=== PATIENT | male | born 1945 | race African-American/Black ===

== ENCOUNTER 2024-01-02 03:42 | Inpatient (IN) | payer BC, OTHER ==
[~2024-01-02] VITALS: Ht 180.3 cm; Wt 94.8 kg
[~2024-01-02 03:42] MED LIST: ALLO300T2 PO; AMLO1CAP2 PO; ASPI-1406 PO; ATOR10TA69 PO; CARV25TA47 PO; FURO40TA5 PO; GLIM4TAB36 PO; HYDR-3782 PO; INSULIN DEGLUDEC SQ; LEVO-65 MT; METO2.5T2 PO; MIRA25TA PO; PANT40TA51 PO; SPIR25TA PO
[2024-01-02] MEDS: DEXTROSE 50% WATER 50ML SYRINGE IV ONE ×2 (04:32)
[2024-01-02 04:58] LABS: BASOPHILS % 0.3 % (0.0-2.0); DIFFERENTIAL COMMENT 0; HEMATOCRIT. 35.8 % (42.0-52.0); HEMOGLOBIN. 11.7 g/dL (14.0-18.0); LYMPHOCYTES % 18.5 % (20.0-50.0); MEAN CORPUSCULAR HEMOGLOBIN 25.1 pg (28.0-32.0); MEAN CORPUSCULAR HGB CONC 32.8 g/dL (31.0-37.0); MEAN CORPUSCULAR VOLUME 76.7 fL (80.0-94.0); MEAN PLATELET VOLUME 9.8 fl (7.4-10.4); MONOCYTES % 7.6 % (2.0-8.0); NEUTROPHILS % 73.6 % (40.0-76.0); PLATELET 178 x1000/uL (130-400); RED BLOOD CELL COUNT 4.67 mill/uL (4.7-6.1); WHITE BLOOD COUNT 8.4 x1000/uL (4.5-11.0)
[2024-01-02 05:14] LABS: ALANINE AMINOTRANSFERASE 29 IU/L (10-49); ASPARTATE AMINOTRANSFERASE 62 IU/L (<34); CARBON DIOXIDE 20 mEq/L (21-32); CHLORIDE 109 mEq/L (98-107); POTASSIUM 5.8 mEq/L (3.5-5.1); PROTEIN TOTAL 7.6 g/dL (6.0-8.3); SODIUM 139 mEq/L (136-145); UREA NITROGEN BLOOD 39 mg/dL (9-23)
[2024-01-02 05:21] LABS: CREATININE 1.5 mg/dL (0.6-1.3)
[2024-01-02 05:23] LABS: GLUCOSE 39 mg/dL (70-105); TROPONIN I HIGH SENSITIVITY 383 ng/L (3.0-53)
[2024-01-02 05:52] LABS: INR 1.2; PROTHROMBIN TIME 13.6 sec (9.6-11.0)
[2024-01-02] MEDS: PIPERACILLIN/TAZO 3.375G/50ML 50 ML IV ONE (06:17)
[2024-01-02] MEDS: SODIUM CHLORIDE 0.9% 500 ML IV ONE (06:17)
[2024-01-02] MEDS: SODIUM POLYSTYRENE SULFONATE 15 G/60 ML BOT PO ONE (06:17)
[2024-01-02] MEDS ORDERED: ENOXAPARIN 100MG/ML SYR SUBCUT ONE (06:30)
[2024-01-02] MEDS: CALCIUM GLUCONATE 1GM PREMIX 50 ML IV ONE ×2 (06:42)
[2024-01-02] MEDS: VANCOMYCIN 1G PREMIX 200 ML IV ONE (06:52)
[2024-01-02 07:20] LABS: TROPONIN I HIGH SENSITIVITY 416 ng/L (3.0-53)
[2024-01-02] MEDS: ASPIRIN 325MG EC TABLET PO ONE (07:51)
[2024-01-02] MEDS ORDERED: MAGNESIUM/ALUMINUM HYDROXIDE/SIMETHICONE 30ML UDC PO PRN (08:45)
[2024-01-02] MEDS ORDERED: GUAIFENESIN 200MG/10ML SUGAR FREE UDC PO PRN (08:45)
[2024-01-02] MEDS ORDERED: ONDANSETRON HCL 4MG/2ML INJ IV PRN (08:45)
[2024-01-02] MEDS ORDERED: IPRATROPIUM/ALBUTEROL 0.5-3(2.5)MG/3ML NEB HHN PRN (08:45)
[2024-01-02] MEDS ORDERED: ACETAMINOPHEN 325MG TABLET PO PRN (08:45)
[2024-01-02] MEDS ORDERED: DOCUSATE SODIUM 100MG CAPSULE PO PRN (08:45)
[2024-01-02] MEDS ORDERED: ENOXAPARIN 40MG/0.4ML SYR SUBCUT SCH (09:00)
[2024-01-02] MEDS: VANCOMYCIN 1G PREMIX 200 ML IV SCH ×2 (09:00→17:16)
[2024-01-02] MEDS: FUROSEMIDE 40MG/4ML VIAL IV SCH (11:12)
[2024-01-02] MEDS: PIPERACILLIN/TAZO 3.375G/50ML 50 ML IV SCH (11:13)
[2024-01-02] MEDS: FAMOTIDINE 20MG TABLET PO SCH (11:15)
[2024-01-02] MEDS: DEXT 5%/LACTATED RINGERS 1,000 ML IV SCH (11:15)
[2024-01-02 11:47] LABS: CLARITY URINE CLEAR (CLEAR); COLOR URINE YELLOW (YELLOW); GLUCOSE URINE NEGATIVE (NEGATIVE); KETONES URINE TRACE (NEGATIVE); LEUKOCYTE ESTERASE URINE NEGATIVE (NEGATIVE); NITRITE URINE NEGATIVE (NEGATIVE); OCCULT BLOOD URINE 1+ (NEGATIVE); PROTEIN URINE 2+ (NEGATIVE); SPECIFIC GRAVITY URINE 1.011 (1.005-1.030); UROBILINOGEN URINE 0.2 E.U./dL (0.2-1.0)
[2024-01-02 12:05] LABS: *AMPHETAMINES SCREEN URINE NEGATIVE (NEGATIVE); *BARBITURATES SCREEN URINE NEGATIVE (NEGATIVE); *BENZODIAZEPINES SCREEN URINE NEGATIVE (NEGATIVE); *COCAINE SCREEN URINE NEGATIVE (NEGATIVE); CANNABINOID URINE SCREEN NEGATIVE (NEGATIVE); ECSTASY MDMA SCREEN URINE NEGATIVE (NEGATIVE); METHADONE URINE SCREEN Neg (NEGATIVE); OPIATES URINE SCREEN NEGATIVE (NEGATIVE); PHENCYCLIDINE URINE SCREEN NEGATIVE (NEGATIVE)
[2024-01-02 12:18] LABS: RBC URINE 0-2 /hpf (0-2); SQUAMOUS EPITHELIAL CELL URINE FEW /lpf (RARE/1+); WBC URINE 0-2 /hpf (0-2)
[2024-01-02 12:19] LABS: BACTERIA URINE NONE SEEN
[2024-01-02 12:42] LABS: CREATINE KINASE 2231 IU/L (46-171); CREATINE KINASE MB FRACTION 29.6 ng/mL (0.5-3.6); IRON 54 ug/dL (65-175); PHOSPHORUS 4.2 mg/dL (2.5-4.9); TOTAL IRON BINDING CAPACITY 230 ug/dl (250-425)
[2024-01-02 12:45] LABS: TROPONIN I HIGH SENSITIVITY 694 ng/L (3.0-53)
[2024-01-02] MEDS: AMLODIPINE 5MG TABLET PO SCH (14:15)
[2024-01-02] MEDS ORDERED: DEXTROSE 50% WATER 50ML SYRINGE IV PRN (14:30)
[2024-01-02 15:15] LABS: FERRITIN 308 ng/mL (22-322); FOLIC ACID (FOLATE) SERUM 19.08 ng/mL (>5.38); VITAMIN B12 SERUM 416 pg/mL (211-911)
[2024-01-02] MEDS: FUROSEMIDE 40MG/4ML VIAL IVP SCH (15:30)
[2024-01-02 16:00] VITALS: BP_SYST 123; BP_DIAS 93; BP_DIAS 97; PULSE 114; RESP 20; TEMP 98.7
[2024-01-02] MEDS: BLOOD SUGAR DIAGNOSTIC STRIP TEST SCH (16:30)
[2024-01-02 20:27] VITALS: BP 157/81; PULSE 111; RESP 20; TEMP 97.8
[2024-01-02] MEDS ORDERED: FAMOTIDINE 20MG TABLET PO SCH (21:00)
[2024-01-02 22:17] LABS: AMMONIA < 17 uMol/L (<32)
[2024-01-02 22:18] LABS: CREATINE KINASE 1196 IU/L (46-171); CREATINE KINASE MB FRACTION 13.5 ng/mL (0.5-3.6)
[2024-01-02] MEDS: ATORVASTATIN CALCIUM 40MG TABLET PO SCH (22:25)
[2024-01-02 22:31] LABS: TROPONIN I HIGH SENSITIVITY 566 ng/L (3.0-53)
[2024-01-03] VITALS (8 sets, daily range): BP systolic 142–155; BP diastolic 65–75; PULSE 99–110; RESP 17–20; TEMP 97.4–98.1
[2024-01-03 06:42] LABS: HEMATOCRIT. 32.3 % (42.0-52.0); HEMOGLOBIN. 10.7 g/dL (14.0-18.0); MEAN CORPUSCULAR HEMOGLOBIN 25.4 pg (28.0-32.0); MEAN CORPUSCULAR HGB CONC 33.1 g/dL (31.0-37.0); MEAN CORPUSCULAR VOLUME 76.7 fL (80.0-94.0); MEAN PLATELET VOLUME 10.1 fl (7.4-10.4); PLATELET 101 x1000/uL (130-400); RED BLOOD CELL COUNT 4.21 mill/uL (4.7-6.1); RED CELL DISTRIBUTION WIDTH 16.9 % (11.6-14.6)
[2024-01-03 06:58] LABS: ALANINE AMINOTRANSFERASE 30 IU/L (10-49); ASPARTATE AMINOTRANSFERASE 57 IU/L (<34); CALCIUM 8.8 mg/dL (8.7-10.4); CARBON DIOXIDE 20 mEq/L (21-32); CHLORIDE 115 mEq/L (98-107); CHOLESTEROL 85 mg/dL (<200); CREATININE 1.4 mg/dL (0.6-1.3); GLUCOSE 119 mg/dL (70-105); HDL CHOLESTEROL 30 mg/dL (>55); LDL CHOLESTEROL 42 mg/dL (5-100); SODIUM 142 mEq/L (136-145); T4 FREE 3.07 ng/dL (0.89-1.76); THYROID STIMULATING HORMONE < 0.10 uIU/mL (0.55-4.78); TRIGLYCERIDE 63 mg/dL (0-150); UREA NITROGEN BLOOD 34 mg/dL (9-23)
[2024-01-03 06:59] LABS: PROTEIN TOTAL 5.5 g/dL (6.0-8.3)
[2024-01-03] MEDS: PIPERACILLIN/TAZO 3.375G/50ML 50 ML IV SCH (07:28)
[2024-01-03 08:22] LABS: DIFFERENTIAL COMMENT 1
[2024-01-03] MEDS ORDERED: FUROSEMIDE 40MG/4ML VIAL IVP SCH (09:00)
[2024-01-03] MEDS: NA PHOS,M-B/NA PHOS,DI-BA ENEMA 118ML PR NR (10:45)
[2024-01-03] MEDS: LACTULOSE 20G/30ML UDC PO NR (11:25)
[2024-01-03 11:45] LABS: ANISOCYTOSIS 1+; PLATELET ESTIMATE SLIGHTLY DECREASED
[2024-01-03] MEDS: METHIMAZOLE 5MG TABLET PO SCH (22:04)
[2024-01-04] VITALS: BP 129/69; PULSE 99; RESP 19; TEMP 97.8
[2024-01-04 08:00] VITALS: BP 162/91; PULSE 95; RESP 20; TEMP 98
[2024-01-04] MEDS: AMLODIPINE 10MG TABLET PO SCH (08:45)
[2024-01-04] MEDS: CLONIDINE 0.1MG TABLET PO PRN (08:45)
[2024-01-04] MEDS: LINAGLIPTIN 5MG TABLET PO SCH (08:45)
[2024-01-04 09:41] LABS: HEMATOCRIT 32.8 % (42.0-52.0); HEMOGLOBIN 10.9 g/dL (14.0-18.0); MEAN CORPUSCULAR HEMOGLOBIN 25.2 pg (28.0-32.0); MEAN CORPUSCULAR HGB CONC 33.1 g/dL (31.0-37.0); MEAN CORPUSCULAR VOLUME 76.2 fL (80.0-94.0); PLATELET 142 x1000/uL (130-400); RED BLOOD CELL COUNT 4.31 mill/uL (4.7-6.1); RED CELL DISTRIBUTION WIDTH 16.5 % (11.6-14.6); WHITE BLOOD COUNT 8.6 x1000/uL (4.5-11.0)
[2024-01-04 11:15] LABS: CARBON DIOXIDE 23 mEq/L (21-32); CHLORIDE 114 mEq/L (98-107); CREATININE 1.3 mg/dL (0.6-1.3); GLUCOSE 192 mg/dL (70-105); PHOSPHORUS 3.3 mg/dL (2.5-4.9); POTASSIUM 3.3 mEq/L (3.5-5.1); SODIUM 145 mEq/L (136-145); UREA NITROGEN BLOOD 28 mg/dL (9-23)
[2024-01-04] MEDS: BACITRACIN 14GM TUBE TOP SCH (13:30)
[2024-01-04] MEDS: METHIMAZOLE 5MG TABLET PO SCH (13:40)
[2024-01-04] MEDS: PIPERACILLIN/TAZO 3.375G/50ML 50 ML IV SCH (13:41)
[2024-01-04 16:00] VITALS: BP 129/53; PULSE 83; RESP 20; TEMP 97.4
[2024-01-04 20:00] VITALS: BP 156/74; PULSE 87; RESP 18; TEMP 97.6
[2024-01-04] MEDS: CARVEDILOL 12.5MG TABLET PO SCH (20:29)
[2024-01-05] VITALS: BP 143/62; PULSE 82; RESP 19; TEMP 98.6
[2024-01-05 04:00] VITALS: BP 150/65; PULSE 86; RESP 19; TEMP 98.7
[2024-01-05 07:29] LABS: CALCIUM 8.7 mg/dL (8.7-10.4); CARBON DIOXIDE 23 mEq/L (21-32); CHLORIDE 113 mEq/L (98-107); CREATININE 1.1 mg/dL (0.6-1.3); GLUCOSE 178 mg/dL (70-105); PHOSPHORUS 2.5 mg/dL (2.5-4.9); POTASSIUM 3.2 mEq/L (3.5-5.1); SODIUM 144 mEq/L (136-145); UREA NITROGEN BLOOD 21 mg/dL (9-23)
[2024-01-05 08:00] VITALS: BP 176/85; PULSE 89; RESP 18; TEMP 97.4
[2024-01-05] MEDS: POTASSIUM CHLORIDE 20MEQ/PACKET PO NR (11:00)
[2024-01-05 12:00] VITALS: BP 156/79; PULSE 88; RESP 20; TEMP 98.6
[2024-01-05 13:07] LABS: HEMATOCRIT 28.3 % (42.0-52.0); HEMOGLOBIN 9.4 g/dL (14.0-18.0); MEAN CORPUSCULAR HEMOGLOBIN 25.5 pg (28.0-32.0); MEAN CORPUSCULAR VOLUME 77.3 fL (80.0-94.0); PLATELET 128 x1000/uL (130-400); RED BLOOD CELL COUNT 3.66 mill/uL (4.7-6.1); RED CELL DISTRIBUTION WIDTH 16.6 % (11.6-14.6); WHITE BLOOD COUNT 6.6 x1000/uL (4.5-11.0)
[2024-01-05 16:00] VITALS: BP 158/79; PULSE 80; RESP 20; TEMP 97.4
[2024-01-05] MEDS: POTASSIUM CHLORIDE 20MEQ TABLET SR PO NR (17:56)
[2024-01-05] MEDS: MAGNESIUM 2 G PREMIX 50 ML IV NR (18:48)
[2024-01-05 20:32] VITALS: BP 171/77; PULSE 97; RESP 16; TEMP 97.8
[2024-01-05] MEDS: CARVEDILOL 12.5MG TABLET PO SCH (21:05)
[2024-01-06 00:45] VITALS: BP 138/72; PULSE 84; RESP 19; TEMP 97.8
[2024-01-06 04:00] VITALS: BP 166/72; PULSE 89; RESP 16; TEMP 97.5
[2024-01-06 07:54] VITALS: BP 134/76; PULSE 87; RESP 20; TEMP 98.3
[2024-01-06 12:00] VITALS: BP 158/73; PULSE 86; RESP 20; TEMP 97.7
[2024-01-06 16:00] VITALS: BP 124/63; PULSE 57; RESP 20; TEMP 98
[2024-01-06 17:25] VITALS: BP 152/68; PULSE 87; RESP 20; TEMP 98
[2024-01-07 08:00] VITALS: BP 148/71; PULSE 90; RESP 16; TEMP 98
[2024-01-07] MEDS: ASPIRIN 81MG TABLET PO SCH (10:42)
[2024-01-07] MEDS: ASCORBIC ACID 500 MG TABLET PO SCH (10:45)
[2024-01-07] MEDS: ZINC SULFATE 220 MG ( 50 ) CAPSULE PO SCH (10:45)
[2024-01-07] MEDS: MULTIVITAMINS,THER W-MINERALS TABLET PO SCH (10:45)
[2024-01-07 12:00] VITALS: BP 135/56; PULSE 73; RESP 18; TEMP 97.9
[2024-01-07 16:00] VITALS: BP 142/69; PULSE 81; RESP 17; TEMP 97.6
[2024-01-07 18:42] LABS: HEMATOCRIT 32.2 % (42.0-52.0); HEMOGLOBIN 10.4 g/dL (14.0-18.0); MEAN CORPUSCULAR HEMOGLOBIN 24.9 pg (28.0-32.0); MEAN CORPUSCULAR HGB CONC 32.4 g/dL (31.0-37.0); MEAN CORPUSCULAR VOLUME 76.8 fL (80.0-94.0); PLATELET 154 x1000/uL (130-400); RED BLOOD CELL COUNT 4.19 mill/uL (4.7-6.1); RED CELL DISTRIBUTION WIDTH 16.6 % (11.6-14.6); WHITE BLOOD COUNT 5.9 x1000/uL (4.5-11.0)
[2024-01-07 18:53] LABS: CALCIUM 8.6 mg/dL (8.7-10.4); CARBON DIOXIDE 25 mEq/L (21-32); CHLORIDE 111 mEq/L (98-107); GLUCOSE 218 mg/dL (70-105); PHOSPHORUS 2.8 mg/dL (2.5-4.9); POTASSIUM 3.4 mEq/L (3.5-5.1); SODIUM 143 mEq/L (136-145); UREA NITROGEN BLOOD 15 mg/dL (9-23)
[2024-01-07 20:00] VITALS: BP 155/72; PULSE 89; RESP 18; TEMP 98.1
[2024-01-08] VITALS: BP 102/60; PULSE 86; RESP 18; TEMP 97.9
[2024-01-08 04:00] VITALS: BP 150/64; PULSE 86; RESP 18; TEMP 97.7
[2024-01-08 07:54] LABS: HEMATOCRIT 30.8 % (42.0-52.0); HEMOGLOBIN 10.2 g/dL (14.0-18.0); MEAN CORPUSCULAR HEMOGLOBIN 25.6 pg (28.0-32.0); MEAN CORPUSCULAR HGB CONC 33.2 g/dL (31.0-37.0); MEAN CORPUSCULAR VOLUME 76.9 fL (80.0-94.0); PLATELET 149 x1000/uL (130-400); RED CELL DISTRIBUTION WIDTH 16.2 % (11.6-14.6); WHITE BLOOD COUNT 6.3 x1000/uL (4.5-11.0)
[2024-01-08 08:00] VITALS: BP 157/77; PULSE 85; RESP 20; TEMP 98.2
[2024-01-08] MEDS: MAGNESIUM 1 G PREMIX 100 ML IV NR (09:00)
[2024-01-08 09:27] LABS: CALCIUM 8.8 mg/dL (8.7-10.4); CARBON DIOXIDE 25 mEq/L (21-32); CHLORIDE 111 mEq/L (98-107); CREATININE 0.9 mg/dL (0.6-1.3); GLUCOSE 157 mg/dL (70-105); POTASSIUM 3.3 mEq/L (3.5-5.1); SODIUM 144 mEq/L (136-145); UREA NITROGEN BLOOD 17 mg/dL (9-23)
[2024-01-08 12:00] VITALS: BP 170/76; PULSE 88; RESP 20; TEMP 98.1
[2024-01-08] MEDS: CYANOCOBALAMIN 1000MCG/ML VIAL IM SCH (14:30)
[2024-01-08 16:00] VITALS: BP 150/68; PULSE 72; RESP 20; TEMP 97.9
[2024-01-08] MEDS: LORAZEPAM 2MG/ML INJ IM NR (16:45)
[2024-01-08 20:00] VITALS: BP 167/76; PULSE 72; RESP 18; TEMP 97.8
[2024-01-09] VITALS: BP 163/84; PULSE 78; RESP 18; TEMP 98.2
[2024-01-09 04:00] VITALS: BP 171/83; PULSE 84; RESP 18; TEMP 98.1
[2024-01-09 06:11] LABS: CALCIUM 8.9 mg/dL (8.7-10.4); CARBON DIOXIDE 26 mEq/L (21-32); CHLORIDE 111 mEq/L (98-107); CREATININE 0.8 mg/dL (0.6-1.3); GLUCOSE 120 mg/dL (70-105); PHOSPHORUS 2.9 mg/dL (2.5-4.9); POTASSIUM 3.3 mEq/L (3.5-5.1); SODIUM 144 mEq/L (136-145); UREA NITROGEN BLOOD 16 mg/dL (9-23)
[2024-01-09 06:21] LABS: HEMATOCRIT 30.2 % (42.0-52.0); HEMOGLOBIN 10.1 g/dL (14.0-18.0); MEAN CORPUSCULAR HEMOGLOBIN 25.4 pg (28.0-32.0); MEAN CORPUSCULAR HGB CONC 33.4 g/dL (31.0-37.0); PLATELET 147 x1000/uL (130-400); RED BLOOD CELL COUNT 3.98 mill/uL (4.7-6.1); RED CELL DISTRIBUTION WIDTH 16.3 % (11.6-14.6); WHITE BLOOD COUNT 6.3 x1000/uL (4.5-11.0)
[2024-01-09 08:00] VITALS: BP 180/87; PULSE 89; RESP 20; TEMP 97.7
[2024-01-09] MEDS: MAGNESIUM 2 G PREMIX 50 ML IV NR (09:00)
[2024-01-09] MEDS: POTASSIUM CHLORIDE 20MEQ/PACKET PO NR (09:06)
[2024-01-09] MEDS: MAGNESIUM GLUCONATE 500MG TABLET PO SCH (09:07)
[2024-01-09] MEDS: CLONIDINE HCL 0.1MG/24HR PATCH TD SCH (09:33)
[2024-01-09 12:00] VITALS: BP 151/91; PULSE 87; RESP 20; TEMP 97.7
[2024-01-09] MEDS: FUROSEMIDE 40MG TABLET PO SCH (15:33)
[2024-01-09] MEDS: MAGNESIUM GLUCONATE 500MG TABLET PO NR (15:33)
[2024-01-09 16:00] VITALS: BP 121/79; PULSE 80; RESP 20; TEMP 97.9
[2024-01-09 20:00] VITALS: BP 168/81; PULSE 82; RESP 20; TEMP 97.7
[2024-01-09] MEDS: HYDRALAZINE HCL 25MG TABLET PO SCH (21:04)
[2024-01-10 04:00] VITALS: BP 178/79; PULSE 93; RESP 20; TEMP 98
[2024-01-10 08:27] LABS: HEMATOCRIT 31.2 % (42.0-52.0); HEMOGLOBIN 10.3 g/dL (14.0-18.0); MEAN CORPUSCULAR HEMOGLOBIN 25.2 pg (28.0-32.0); MEAN CORPUSCULAR VOLUME 76.3 fL (80.0-94.0); PLATELET 135 x1000/uL (130-400); RED BLOOD CELL COUNT 4.09 mill/uL (4.7-6.1); RED CELL DISTRIBUTION WIDTH 16.7 % (11.6-14.6)
[2024-01-10 08:42] LABS: CALCIUM 8.8 mg/dL (8.7-10.4); CARBON DIOXIDE 28 mEq/L (21-32); CHLORIDE 113 mEq/L (98-107); CREATININE 0.9 mg/dL (0.6-1.3); GLUCOSE 149 mg/dL (70-105); PHOSPHORUS 2.6 mg/dL (2.5-4.9); POTASSIUM 3.6 mEq/L (3.5-5.1); SODIUM 145 mEq/L (136-145); UREA NITROGEN BLOOD 18 mg/dL (9-23)
[2024-01-10] MEDS: LOSARTAN 25 MG TABLET PO SCH (09:21)
[2024-01-10 12:00] VITALS: BP 157/76; PULSE 97; RESP 20; TEMP 97.7
[2024-01-10 16:00] VITALS: BP 148/87; PULSE 85; RESP 20; TEMP 97.4
[2024-01-10 20:00] VITALS: BP 161/67; PULSE 79; RESP 16; TEMP 97.2
[2024-01-11] VITALS: BP 161/75; PULSE 70; RESP 16; TEMP 97.1
[2024-01-11 04:00] VITALS: BP 157/72; PULSE 87; RESP 16; TEMP 97.3
[2024-01-11] MEDS: NATEGLINIDE 60MG TABLET PO SCH (06:48)
[2024-01-11 07:09] LABS: CALCIUM 9.3 mg/dL (8.7-10.4); CARBON DIOXIDE 28 mEq/L (21-32); CHLORIDE 109 mEq/L (98-107); CREATININE 0.9 mg/dL (0.6-1.3); GLUCOSE 164 mg/dL (70-105); PHOSPHORUS 2.9 mg/dL (2.5-4.9); POTASSIUM 3.5 mEq/L (3.5-5.1); SODIUM 142 mEq/L (136-145); UREA NITROGEN BLOOD 17 mg/dL (9-23)
[2024-01-11 07:38] LABS: HEMATOCRIT 34.8 % (42.0-52.0); HEMOGLOBIN 11.4 g/dL (14.0-18.0); MEAN CORPUSCULAR HEMOGLOBIN 24.9 pg (28.0-32.0); MEAN CORPUSCULAR HGB CONC 32.6 g/dL (31.0-37.0); MEAN CORPUSCULAR VOLUME 76.3 fL (80.0-94.0); PLATELET 157 x1000/uL (130-400); RED BLOOD CELL COUNT 4.56 mill/uL (4.7-6.1); RED CELL DISTRIBUTION WIDTH 16.8 % (11.6-14.6); WHITE BLOOD COUNT 7.3 x1000/uL (4.5-11.0)
[2024-01-11 08:00] VITALS: BP 167/82; PULSE 85; RESP 17; TEMP 97.3
[2024-01-11] MEDS: LOSARTAN 50 MG TABLET PO SCH (08:50)
[2024-01-11] MEDS: MAGNESIUM GLUCONATE 500MG TABLET PO NR ×2 (08:52→16:00)
[2024-01-11] MEDS: HYDRALAZINE HCL 25MG TABLET PO SCH (14:00)
[2024-01-11 16:00] VITALS: BP 139/61; PULSE 76; RESP 17; TEMP 97.3
[2024-01-11] MEDS: SPIRONOLACTONE 25MG TABLET PO SCH (17:30)
[2024-01-11 20:00] VITALS: BP 129/60; PULSE 73; RESP 18; TEMP 97.1
[2024-01-11] MEDS ORDERED: SPIRONOLACTONE 25MG TABLET PO SCH (21:00)
[2024-01-12] VITALS: BP 134/58; PULSE 72; RESP 19; TEMP 98.2
[2024-01-12 04:00] VITALS: BP 141/75; PULSE 74; RESP 19; TEMP 98.6
[2024-01-12 08:00] VITALS: BP 153/65; PULSE 96; RESP 18; TEMP 97.9
[2024-01-12 12:05] VITALS: BP 145/58; PULSE 85; RESP 20; TEMP 98.2
[2024-01-12] MEDS: HYDRALAZINE HCL 50MG TABLET PO SCH (15:02)
[2024-01-12 16:36] VITALS: BP 153/63; PULSE 82; RESP 18; TEMP 98.4
[2024-01-13] VITALS: BP 140/65; PULSE 83; RESP 18; TEMP 97.5
[2024-01-13 04:00] VITALS: BP 145/58; PULSE 68; RESP 18; TEMP 97.5
[2024-01-13 08:00] VITALS: BP 150/62; PULSE 87; RESP 18; RESP 19; TEMP 98.4
[2024-01-13 12:00] VITALS: BP 146/57; PULSE 83; RESP 20; TEMP 98.6
[2024-01-13] MEDS: ENOXAPARIN 30MG/0.3ML SYR SUBCUT SCH (13:29)
[2024-01-13 16:00] VITALS: BP 137/58; PULSE 82; RESP 17; TEMP 98.1
[2024-01-13 20:00] VITALS: BP 128/49; PULSE 73; RESP 19; TEMP 97
[2024-01-14] VITALS: BP 138/56; PULSE 79; RESP 18; TEMP 97.7
[2024-01-14 04:00] VITALS: BP 151/63; PULSE 83; RESP 18; TEMP 97.9
[2024-01-14 08:00] VITALS: BP 163/70; PULSE 85; RESP 20; TEMP 98.2
[2024-01-14] MEDS ORDERED: CLONIDINE HCL 0.1MG/24HR PATCH TD ONE (10:30)
[2024-01-14 12:00] VITALS: BP 168/71; PULSE 97; RESP 20; TEMP 97
[2024-01-14] MEDS: ACETAMINOPHEN 325MG TABLET PO PRN (12:35)
[2024-01-14] MEDS: HYDRALAZINE HCL 100MG TABLET PO SCH (14:14)
[2024-01-14 16:15] VITALS: BP 128/56; PULSE 78; RESP 20; TEMP 98
[2024-01-14 16:54] LABS: HEMATOCRIT 29.5 % (42.0-52.0); HEMOGLOBIN 9.7 g/dL (14.0-18.0); MEAN CORPUSCULAR HEMOGLOBIN 25.3 pg (28.0-32.0); MEAN CORPUSCULAR HGB CONC 33.1 g/dL (31.0-37.0); MEAN CORPUSCULAR VOLUME 76.5 fL (80.0-94.0); PLATELET 138 x1000/uL (130-400); RED BLOOD CELL COUNT 3.85 mill/uL (4.7-6.1); RED CELL DISTRIBUTION WIDTH 16.7 % (11.6-14.6)
[2024-01-14 17:09] LABS: CALCIUM 8.9 mg/dL (8.7-10.4); CARBON DIOXIDE 24 mEq/L (21-32); CHLORIDE 113 mEq/L (98-107); GLUCOSE 104 mg/dL (70-105); POTASSIUM 3.3 mEq/L (3.5-5.1); SODIUM 145 mEq/L (136-145); UREA NITROGEN BLOOD 18 mg/dL (9-23)
[2024-01-15] VITALS: BP 120/46; PULSE 75; RESP 18; TEMP 98
[2024-01-15 08:00] VITALS: BP 131/60; PULSE 81; RESP 20; TEMP 98.2
[2024-01-15] MEDS: POTASSIUM CHLORIDE 20MEQ/PACKET PO NR (08:48)
[2024-01-15 12:00] VITALS: BP 137/71; PULSE 79; RESP 18; TEMP 97.9
[2024-01-15 16:43] VITALS: BP 124/56; PULSE 74; RESP 20; TEMP 98.4
[2024-01-15 18:10] LABS: HEMATOCRIT 28.8 % (42.0-52.0); HEMOGLOBIN 9.4 g/dL (14.0-18.0)
[2024-01-15 18:24] LABS: CALCIUM 8.7 mg/dL (8.7-10.4); CARBON DIOXIDE 24 mEq/L (21-32); CHLORIDE 113 mEq/L (98-107); CREATININE 1.1 mg/dL (0.6-1.3); GLUCOSE 143 mg/dL (70-105); POTASSIUM 3.6 mEq/L (3.5-5.1); SODIUM 144 mEq/L (136-145); UREA NITROGEN BLOOD 20 mg/dL (9-23)
[2024-01-15 20:00] VITALS: BP 121/48; PULSE 72; RESP 19; TEMP 99.1
[2024-01-16] VITALS (7 sets, daily range): BP systolic 127–170; BP diastolic 54–76; PULSE 75–83; RESP 18–20; TEMP 97–99.1
[2024-01-16 07:10] LABS: HEMOGLOBIN 9.7 g/dL (14.0-18.0)
[2024-01-16 07:41] LABS: CARBON DIOXIDE 25 mEq/L (21-32); CHLORIDE 111 mEq/L (98-107); CREATININE 1.2 mg/dL (0.6-1.3); GLUCOSE 145 mg/dL (70-105); PHOSPHORUS 2.6 mg/dL (2.5-4.9); POTASSIUM 3.7 mEq/L (3.5-5.1); SODIUM 142 mEq/L (136-145); UREA NITROGEN BLOOD 22 mg/dL (9-23)
[2024-01-17] VITALS: BP 152/60; PULSE 87; RESP 18; TEMP 98.6
[2024-01-17 04:00] VITALS: BP 155/65; RESP 19; TEMP 97.9
[2024-01-17] MEDS: METHIMAZOLE 10MG TABLET PO SCH (05:55)
[2024-01-17 08:00] VITALS: BP 153/61; PULSE 91; RESP 18; TEMP 98.1
[2024-01-17 12:00] VITALS: BP 140/61; PULSE 77; RESP 19; TEMP 97.9
[2024-01-17 16:00] VITALS: BP 111/75; PULSE 79; RESP 18; TEMP 97.7
[2024-01-17 20:00] VITALS: BP 155/77; PULSE 80; RESP 18; TEMP 98.1
[2024-01-18] VITALS: BP 131/54; PULSE 72; RESP 18; TEMP 97.7
[2024-01-18 04:00] VITALS: BP 153/69; PULSE 78; RESP 18; TEMP 97.7
[2024-01-18 07:12] LABS: CALCIUM 9.1 mg/dL (8.7-10.4); CARBON DIOXIDE 24 mEq/L (21-32); CHLORIDE 112 mEq/L (98-107); CREATININE 1.1 mg/dL (0.6-1.3); GLUCOSE 93 mg/dL (70-105); PHOSPHORUS 2.9 mg/dL (2.5-4.9); SODIUM 142 mEq/L (136-145); T4 FREE 2.21 ng/dL (0.89-1.76); THYROID STIMULATING HORMONE < 0.10 uIU/mL (0.55-4.78); UREA NITROGEN BLOOD 21 mg/dL (9-23)
[2024-01-18 08:00] VITALS: BP 146/65; PULSE 80; RESP 18; TEMP 97.7
[2024-01-18] MEDS: METHIMAZOLE 5MG TABLET PO SCH (09:45)
[2024-01-18 12:00] VITALS: RESP 17
[2024-01-18] MEDS: NATEGLINIDE 60MG TABLET PO SCH (12:55)
[2024-01-18 19:58] VITALS: BP 144/82; PULSE 77; RESP 20; TEMP 98.4
[2024-01-19 00:22] VITALS: BP 139/86; PULSE 76; RESP 20; TEMP 97.1
[2024-01-19 04:23] VITALS: BP 135/74; PULSE 82; RESP 20; TEMP 97.6
[2024-01-19] MEDS: ENOXAPARIN 40MG/0.4ML SYR SUBCUT SCH (10:13)
[2024-01-19] MEDS ORDERED: LOSA50TA41 PO (10:58)
[2024-01-19] MEDS ORDERED: CLON1PAT10 TD (10:58)
[2024-01-19] MEDS ORDERED: SPIR25TA PO (10:58)
[2024-01-19] MEDS ORDERED: AMLO10TA80 PO (10:58)
[2024-01-19] MEDS ORDERED: LIP40 PO (10:58)
[2024-01-19] MEDS ORDERED: METH-372 MT (10:58)
[2024-01-19 12:00] VITALS: BP 132/57; PULSE 73; RESP 18; TEMP 98.4
[2024-01-19 16:15] VITALS: BP 130/66; PULSE 73; TEMP 98.4; O2SAT 96
[2024-01-19 18:19] VITALS: BP 148/81; PULSE 64; RESP 18; TEMP 97.4
== END 2024-01-19 19:00 | disposition home or self-care (01) | DRG 871 ==
LOC: ER 04:54 → 7WST 05:43 → 6WST 01-06 15:34 → 4WST 01-09 15:50
PROVIDERS: ADMIT Internal Medicine; ATTEND Internal Medicine
DX: A41.9 Sepsis, unspecified organism (principal); G82.50 Quadriplegia, unspecified; L89.323 Pressure ulcer of left buttock, stage 3; L89.313 Pressure ulcer of right buttock, stage 3; G92.8 Other toxic encephalopathy; I21.A1 Myocardial infarction type 2; J18.9 Pneumonia, unspecified organism; I50.43 Acute on chronic combined systolic (congestive) and diastolic (congestive) heart failure; M62.82 Rhabdomyolysis; N17.9 Acute kidney failure, unspecified; I13.0 Hypertensive heart and chronic kidney disease with heart failure and stage 1 through stage 4 chronic kidney disease, or unspecified chronic kidney disease; I42.9 Cardiomyopathy, unspecified; F03.918 Unspecified dementia, unspecified severity, with other behavioral disturbance; B35.1 Tinea unguium; D50.9 Iron deficiency anemia, unspecified; E11.22 Type 2 diabetes mellitus with diabetic chronic kidney disease; E87.5 Hyperkalemia; N18.30 Chronic kidney disease, stage 3 unspecified; D69.6 Thrombocytopenia, unspecified; E05.90 Thyrotoxicosis, unspecified without thyrotoxic crisis or storm; E66.9 Obesity, unspecified; I16.0 Hypertensive urgency; I27.20 Pulmonary hypertension, unspecified; K42.9 Umbilical hernia without obstruction or gangrene; K80.20 Calculus of gallbladder without cholecystitis without obstruction; T40.415A Adverse effect of fentanyl or fentanyl analogs, initial encounter; E11.40 Type 2 diabetes mellitus with diabetic neuropathy, unspecified; E11.649 Type 2 diabetes mellitus with hypoglycemia without coma; E21.3 Hyperparathyroidism, unspecified; E78.5 Hyperlipidemia, unspecified; I25.2 Old myocardial infarction; Z79.84 Long term (current) use of oral hypoglycemic drugs; Z87.440 Personal history of urinary (tract) infections; Z96.653 Presence of artificial knee joint, bilateral; Z95.810 Presence of automatic (implantable) cardiac defibrillator; Z83.3 Family history of diabetes mellitus; Z82.49 Family history of ischemic heart disease and other diseases of the circulatory system; Z86.73 Personal history of transient ischemic attack (TIA), and cerebral infarction without residual deficits; Z68.36 Body mass index [BMI] 36.0-36.9, adult; Z79.899 Other long term (current) drug therapy; Y92.89 Other specified places as the place of occurrence of the external cause
CPT/HCPCS: 36415; 71045; 74176; 76536; 76870; 80048; 80053; 80061; 80305; 81003; 82140; 82533; 82550; 82553; 82607; 82728; 82746; 82962; 83036; 83520; 83540; 83550; 83605; 83735; 83880; 84100; 84145; 84153; 84439; 84443; 84481; 84484; 85014; 85018; 85025; 85027; 85379; 86376; 87426; 93005; 93308; 93970; 93976; 97110; 97116; 97162; 97166; 97530; 97535; 99291; A6261; J0610; J1650; J1940; J2060; J2543; J3370; J3420; J3475; J7040